=== PATIENT | female | born 1950 | race Caucasian/White ===

== ENCOUNTER 2019-12-01 06:33 | Observation (INO) | payer OTHER, MEDICARE ==
[2019-11-25 12:40] LABS: PROTIME 10.4 Seconds (9.3-11.4)
[~2019-12-01] VITALS: Ht 157.5 cm; Wt 95.3 kg
[2019-12-01] VITALS (12 sets, daily range): BP systolic 133–159; BP diastolic 62–90
--- NOTE | ~2019-12-01 | O ---
[address] [address] OPERATIVE REPORT Name: KYLEE LUX Room #: 441-P [facility]#: [id number] Admission: 12/01/19 Attend Phys: Eliud Bell MD Discharge: Date of : 50 Report #: [id number] THIS REPORT FOR: cc: FAM - Family physician unknown FAM - Family physician unknown Eliud Bell MD ~ CC: [facility] unknown Eliud Bell DATE OF SERVICE: 12/01/2019 SERVICE: Orthopedics. FACILITY: [facility]. SURGEON: Eliud Bell MD RN NICU: Ricarda Webb NP. INDICATION FOR RN NICU: Extremity positioning, retraction, assistance with the arthroplasty reconstruction and wound closure. COMPLICATIONS: None. DRAINS: None. SPECIMENS: None. PREOPERATIVE DIAGNOSIS: Severe right knee osteoarthritis. POSTOPERATIVE DIAGNOSIS: Severe right knee osteoarthritis. PROCEDURE: 1. Right total knee arthroplasty. 2. Computer navigated robotic-assisted arthroplasty. FINDINGS: 1. [employer] cobalt chrome Legion size 6 narrow femur with size 5 tibia, size 5 Diana II tibial component with 11 mm constrained poly insert and 32 mm patellar button. 2. Well balanced knee with flexion and extension gaps with full extension after final implantation. HISTORY AND INDICATIONS: The patient is a 69-year-old female who has a history of severe right knee osteoarthritis with pseudogout and she had failed extensive [address] [address] OPERATIVE REPORT Name: KYLEE LUX Room #: 441-P [facility]#: [id number] Admission: 12/01/19 Attend Phys: Eliud Bell MD Discharge: Date of : 50 Report #: [id number] conservative treatment including rest, activity modifications, physical therapy, oral medicines and injections. She had shly-lt-ysic osteoarthritis with osteophytes, sclerosis and subchondral cyst. She is indicated for surgical treatment after failing conservative measures. Risks, benefits, alternatives and indications for surgery were discussed with her in detail. We together elected for total knee arthroplasty after these were reviewed. She was in favor of this. Risks include but not limited to pain, bleeding, infection, injury to nerves or blood vessels, persistent pain despite surgical intervention, failure of the arthroplasty, need for further surgery including revision as well as complications related to anesthesia such as stroke, heart attack, pulmonary complications, thromboembolic disease and . Despite these risks, she wished to proceed. PROCEDURE IN DETAIL: After right lower extremity was correctly identified as operative extremity, she underwent placement of single shot regional nerve block. She was then taken to the operating room where general anesthesia was induced without complication. She was padded appropriately. Prophylactic antibiotics were administered at appropriate time. Tourniquet was applied to right leg. Right lower extremity was then prepped and draped in standard sterile fashion. Timeout procedure performed. Esmarch was used. Tourniquet inflated to 300 mmHg. Standard anterior approach was made to the knee with a medial parapatellar arthrotomy. A medial release was performed as this was a varus knee. The half pin and then check points were placed for the [employer] and [employer] computer navigation system and initial information was obtained. She had a flexion contracture approximately 2 degrees with varus alignment of approximately 5 degrees based on the Navio data. We sized her accordingly and then mapped the femur and tibia in a typical fashion and selected appropriate implants at that time. The distal femoral cut was then made with the robotic assistance and placed a cutting block and assessed with the lori wing for confirmation and it was felt that the implant was too anterior and we translated posterior 2 mm and lori wing and the Navio robotics gave more appropriate anterior flush line. The Legion 4-in-1 cutting block was then impacted into position and then the cuts were made accordingly. Posterior osteophytes were removed. The Navio was used to establish the position of the tibial cutting block and then the tibia was pinned into position. Retractors were used and the tibia was cut in a typical fashion. Osteophytes were removed posteriorly. The popliteus had a partial cut in it after removal of the tibial bone cut and the posterior horn of the lateral meniscus and so, I used an 0 Ethibond suture to repair the popliteus, but ultimately we ended up removing this because she was in fact tight in flexion, specifically laterally and she ultimately required a medial release for some extension tightness medially as well as a posterolateral capsular release for the flexion tightness laterally. So, the partial cut within the popliteus served as the popliteal lengthening and then the pie-crusting of the posterior lateral capsule allowed for appropriate balancing. This was done after sizing and placement of the trials and gap [address] [address] OPERATIVE REPORT Name: KYLEE LUX Room #: 441-P ADM [facility]#: [id number] Admission: 12/01/19 Attend Phys: Eliud Bell MD Discharge: Date of : 50 Report #: [id number] balancing was completed. I prepared the box on the femur and then placed the trials into position, set the tibial rotation and then placed the 9 mm trial initially but once the posterior lateral soft tissue release was completed, she was better balanced with an 11 mm trial. With the trials in place, the knee was placed into extension and then the patella was prepared with 32 mm inset button. Trials were removed. Final preparation was performed. The bone was lavaged and then the final implants were cemented into place via typical routine. The excess cement was removed. The knee was allowed to sit in full extension while the cement cured. Note that the Navio was again consulted with the trials and to assess the gap balancing and I liked the read on the 11 mm poly best. While the cement was cured, the remaining portion of the periarticular injection was infiltrated anteriorly, medially, laterally. During gap balancing when the trials were removed, the posterior capsule was injected with one-third of the periarticular injection volume with care taken to aspirate prior to each injection. The tourniquet was let down while the cement cured. Hemostasis was achieved. The knee was then taken through full range of motion and found to be very stable and was well balanced with the exception of slight medial laxity in flexion, so I elected for the constrained liner and this provided more appropriate stability all throughout the full range of motion. The wound was once again irrigated and then arthrotomy was closed with 1 gram of vancomycin powder with 0 Ethibond sutures. The skin layer was closed with 2-0 Vicryl followed by running subcuticular 3-0 Monocryl and Dermabond and then a SABINE dressing was applied to the knee, followed by a PolarCare and a compression stocking. The patient was awakened from anesthesia and taken to recovery room in stable condition. No complications. All counts were correct. By: [id number] Eliud Bell MD /rm
[~2019-12-01 06:33] MED LIST: ACCUPRIL40 MG PO; ARNUITY ELLIP100 MCG INH; CALCIUM500 MG PO; KLOR-CON M2020 MEQ PO; METFORMIN HCL500 MG PO; METOPROLOL SUCC50 MG PO; PROAIR HFA8.5 GM INH; SIMVASTATIN40 MG PO; SINGULAIR 10 MG10 MG PO; TRIAMTERENE/HCT1 CA1 PO; TYLENOL325 M1 PO; VITAMIN D350 MC2 PO
[2019-12-02 02:30] VITALS: BP 132/70
[2019-12-02 05:39] LABS: ABSOLUTE NEUTROPHILS 11.4 thou/uL (1.4-8.2); BASOPHILS 0.2 % (0.0-2.0); HEMATOCRIT 31.8 % (37.0-47.0); HEMOGLOBIN 10.6 gm/dL (12.0-15.0); MCHC 33.3 g/dL (28.0-37.0); MCV 93.1 fL (80.0-100.0); MONOCYTES 10.8 % (1.0-8.0); PLATELET COUNT 290 thou/uL (150-400); RBC 3.41 mil/uL (4.20-5.00); RDW 12.9 % (10.5-14.5); WBC 14.2 thou/uL (4.0-11.0)
[2019-12-02 05:42] LABS: CREATININE 0.8 mg/dL (0.6-1.0); MAGNESIUM 1.5 mg/dL (1.8-2.4); POTASSIUM 4.5 mmol/L (3.5-5.1)
[2019-12-02 07:15] VITALS: BP 184/92
[2019-12-02 14:49] VITALS: BP 132/70
== END 2019-12-02 15:08 | disposition home or self-care (01) ==
LOC: 4S 06:33 → TBA 06:33 → PRE 08:06 → 4S 13:09 → PRE 19:50 → ENTRNSPT 12-02 14:53 → EDTRNSPTSTS 12-02 14:58 → 4S 12-02 15:08
PROVIDERS: Nurse Practitioner; ADMIT Orthopaedic Surgery Sports Medicine
DX: M17.11 Unilateral primary osteoarthritis, right knee (principal); I10 Essential (primary) hypertension; E78.5 Hyperlipidemia, unspecified; E11.9 Type 2 diabetes mellitus without complications; E83.42 Hypomagnesemia
CPT/HCPCS: 50010; 50101; 50415; 50954; 51130; 51225; 51320; 52001; 53000; 53078; 53364; 54118; 56524; 56528; 57095; 57103; 57110; 57127; 57180; 62110; 62900; 64042; 70005